=== PATIENT | female | born 1990 | race Two or more races ===

== ENCOUNTER 2019-08-27 06:40 | Emergency (ER) | payer OTHER ==
[~2019-08-27] VITALS: Ht 180.3 cm; Wt 86.7 kg
[2019-08-27 06:43] VITALS: BP 130/62
== END 2019-08-27 10:27 | disposition home or self-care (01) ==
LOC: ED 07:31
DX: J18.1 Lobar pneumonia, unspecified organism (principal); J02.0 Streptococcal pharyngitis
CPT/HCPCS: 71046; 87880; 99284